=== PATIENT | female | born 1965 | race African-American/Black ===

== ENCOUNTER 2017-06-07 19:18 | Emergency (ER) | payer OTHER ==
[~2017-06-07] VITALS: Ht 165.1 cm; Wt 113.4 kg
[2017-06-07 20:12] LABS: PLATELET COUNT 278 x10^3mcL (130-400); RED CELL DISTRIBUTION WIDTH 14.5 % (11.5-14.5)
[2017-06-07 20:20] LABS: ALKALINE PHOSPHATASE 134 U/L (46-116); ALT/SGPT 42 U/L (14-59); AST/SGOT 26 U/L (15-37); BILIRUBIN TOTAL 0.5 mg/dL (0.20-1.00); CALCIUM 8.8 mg/dL (8.5-10.1); CARBON DIOXIDE 30.8 mmol/L (21-32); CHLORIDE SERUM 103 mmol/L (98-107); CREATININE SERUM 0.8 mg/dL (0.6-1.0); GFR1 > 60 mL/min; GLUCOSE SERUM 135 mg/dL (74-106); SODIUM SERUM 142 mmol/L (136-145); TOTAL PROTEIN, SERUM 6.9 g/dL (6.4-8.2)
[2017-06-07 20:21] LABS: ALBUMIN 2.7 g/dL (3.4-5.0)
[2017-06-07 20:22] LABS: POTASSIUM SERUM 2.9 mmol/L (3.5-5.1)
[2017-06-07 20:40] LABS: BAND NEUTROPHIL 3 % (0-10); BASOPHIL 0 % (0-2); MONOCYTE 6 % (0-7); PLATELET MORPHOLOGY PLATELETS NORMAL; SEGMENTED NEUTROPHILS 84 % (37-75); rbc morphology (normal/abnorm) NORMAL (NORMAL)
[2017-06-08 00:12] VITALS: BP 125/67
== END 2017-06-08 00:10 | disposition short-term general hospital (02) ==
LOC: ED 19:18
PROVIDERS: Emergency Medicine
DX: L03.112 Cellulitis of left axilla (principal); E87.6 Hypokalemia; E66.9 Obesity, unspecified; I10 Essential (primary) hypertension; J45.909 Unspecified asthma, uncomplicated; M19.90 Unspecified osteoarthritis, unspecified site; Z79.899 Other long term (current) drug therapy
CPT/HCPCS: 83880; J0696; J2270; J3490